=== PATIENT | female | born 1950 | race African-American/Black ===

== ENCOUNTER 2018-05-16 00:44 | Emergency (ER) | payer MEDICARE, MEDICAID ==
[~2018-05-16] VITALS: Ht 167.6 cm; Wt 90.9 kg
[~2018-05-16 00:44] MED LIST: ACET-2178 PO; ASPI-1158 PO; CARV6.2548 PO; CLON0.1T PO; LOSA50TA20 PO
[2018-05-16] MEDS ORDERED: ACETAMINOPHEN 325MG TABLET PO STA (09:59)
[2018-05-16 11:57] LABS: CLARITY URINE CLEAR (CLEAR); COLOR URINE YELLOW (YELLOW); KETONES URINE NEGATIVE (NEGATIVE); LEUKOCYTE ESTERASE URINE NEGATIVE (NEGATIVE); NITRITE URINE NEGATIVE (NEGATIVE); OCCULT BLOOD URINE NEGATIVE (NEGATIVE); PH URINE 6.5 (4.5-8.0); PROTEIN URINE NEGATIVE (NEGATIVE); SPECIFIC GRAVITY URINE 1.003 (1.005-1.030); UROBILINOGEN URINE 0.2 E.U./dL (0.2-1.0)
[2018-05-16 12:29] LABS: BASOPHILS % 0.2 % (0.0-2.0); EOSINOPHILS % 0.8 % (0.0-5.0); HEMATOCRIT. 44.3 % (36.0-48.0); HEMOGLOBIN. 14.4 g/dL (12.0-16.0); LYMPHOCYTES % 17.4 % (20.0-50.0); MEAN CORPUSCULAR HEMOGLOBIN 26.9 pg (28.0-32.0); MEAN CORPUSCULAR VOLUME 82.6 fL (81.0-99.0); MEAN PLATELET VOLUME 9.2 fl (7.4-10.4); MONOCYTES % 8.8 % (2.0-8.0); NEUTROPHILS % 72.8 % (40.0-76.0); PLATELET 132 x1000/uL (130-400); RED BLOOD CELL COUNT 5.36 mill/uL (4.2-5.4); RED CELL DISTRIBUTION WIDTH 17.1 % (11.6-14.6)
[2018-05-16 12:37] LABS: CHLORIDE 104 mEq/L (98-107)
[2018-05-16 15:01] VITALS: BP 160/92
== END 2018-05-16 15:01 | disposition home or self-care (01) ==
LOC: ER 00:44
DX: R10.9 Unspecified abdominal pain (principal); M54.5 Low back pain
CPT/HCPCS: 36415; 99283

== ENCOUNTER 2018-06-18 05:52 | Inpatient (IN) | payer MEDICARE, MEDICAID ==
[~2018-06-18] VITALS: Ht 165.1 cm; Wt 92.1 kg
[2018-06-18] MEDS ORDERED: MORPHINE SULFATE 4 MG/ML CPJ (NOT FOR IM USE) IV STA (06:25)
[2018-06-18] MEDS ORDERED: SODIUM CHLORIDE 0.9% 1,000 ML IV ONE (06:25)
[2018-06-18] MEDS ORDERED: ONDANSETRON HCL 4MG/2ML INJ IV STA (06:25)
[2018-06-18 06:52] LABS: BASOPHILS % 0.2 % (0.0-2.0); EOSINOPHILS % 0.8 % (0.0-5.0); HEMATOCRIT. 41.7 % (36.0-48.0); HEMOGLOBIN. 13.6 g/dL (12.0-16.0); LYMPHOCYTES % 9.2 % (20.0-50.0); MEAN CORPUSCULAR HEMOGLOBIN 27.1 pg (28.0-32.0); MEAN CORPUSCULAR VOLUME 83.1 fL (81.0-99.0); MONOCYTES % 6.7 % (2.0-8.0); NEUTROPHILS % 83.1 % (40.0-76.0); PLATELET 166 x1000/uL (130-400); RED BLOOD CELL COUNT 5.01 mill/uL (4.2-5.4); RED CELL DISTRIBUTION WIDTH 17.4 % (11.6-14.6)
[2018-06-18 06:59] LABS: CHLORIDE 105 mEq/L (98-107)
[2018-06-18] MEDS ORDERED: ASPIRIN 325MG EC TABLET PO ONE (10:00)
[2018-06-18 10:40] LABS: CLARITY URINE CLEAR (CLEAR); COLOR URINE YELLOW (YELLOW); KETONES URINE NEGATIVE (NEGATIVE); LEUKOCYTE ESTERASE URINE NEGATIVE (NEGATIVE); NITRITE URINE NEGATIVE (NEGATIVE); OCCULT BLOOD URINE NEGATIVE (NEGATIVE); PH URINE 7.5 (4.5-8.0); PROTEIN URINE NEGATIVE (NEGATIVE); SPECIFIC GRAVITY URINE 1.001 (1.005-1.030); UROBILINOGEN URINE 0.2 E.U./dL (0.2-1.0)
[2018-06-18] MEDS ORDERED: ONDANSETRON HCL 4MG/2ML INJ IV PRN (11:15)
[2018-06-18] MEDS ORDERED: CLONIDINE 0.1MG TABLET PO PRN (11:15)
[2018-06-18] MEDS ORDERED: ACETAMINOPHEN 325MG TABLET PO PRN (11:15)
[2018-06-18] MEDS ORDERED: DEXTROSE 50% WATER 50ML SYRINGE IV PRN (11:15)
[2018-06-18] MEDS ORDERED: IPRATROPIUM/ALBUTEROL 0.5-3(2.5)MG/3ML NEB INH PRN (11:15)
[2018-06-18 11:30] VITALS: BP 152/98
[2018-06-18] MEDS: BLOOD SUGAR DIAGNOSTIC STRIP TEST SCH ×3 (12:10→21:00)
[2018-06-18] MEDS ORDERED: LACTULOSE 20G/30ML UDC PO PRN (12:30)
[2018-06-18] MEDS ORDERED: LACTULOSE 20G/30ML UDC PO NR (12:30)
[2018-06-18] MEDS: DOCUSATE SODIUM 250MG CAPSULE PO SCH (13:21)
[2018-06-18] MEDS: CARVEDILOL 6.25 MG TABLET PO SCH ×2 (13:21→21:07)
[2018-06-18] MEDS: LOSARTAN POTASSIUM 50 MG TABLET PO SCH (13:21)
[2018-06-18] MEDS: ENOXAPARIN 40MG/0.4ML SYR SUBCUT SCH (13:22)
[2018-06-18] MEDS: INSULIN LISPRO 100 UNITS/ML SUBCUT SCH ×3 (13:24→21:00)
[2018-06-18] MEDS: FUROSEMIDE 40MG/4ML VIAL IVP SCH (17:36)
[2018-06-18 20:00] VITALS: BP 134/185
[2018-06-18] MEDS: FAMOTIDINE 20MG TABLET PO SCH (21:07)
[2018-06-19 02:26] VITALS: BP 113/66
[2018-06-19 04:00] VITALS: BP 141/85
[2018-06-19] MEDS: BLOOD SUGAR DIAGNOSTIC STRIP TEST SCH ×2 (05:53→12:03)
[2018-06-19] MEDS: INSULIN LISPRO 100 UNITS/ML SUBCUT SCH ×2 (06:00→12:19)
[2018-06-19 07:08] LABS: BASOPHILS % 0.2 % (0.0-2.0); EOSINOPHILS % 1.1 % (0.0-5.0); HEMATOCRIT. 37.4 % (36.0-48.0); HEMOGLOBIN. 12.1 g/dL (12.0-16.0); LYMPHOCYTES % 17.8 % (20.0-50.0); MEAN CORPUSCULAR VOLUME 83.5 fL (81.0-99.0); MEAN PLATELET VOLUME 8.8 fl (7.4-10.4); MONOCYTES % 9.1 % (2.0-8.0); NEUTROPHILS % 71.8 % (40.0-76.0); PLATELET 138 x1000/uL (130-400); RED BLOOD CELL COUNT 4.48 mill/uL (4.2-5.4); RED CELL DISTRIBUTION WIDTH 17.3 % (11.6-14.6)
[2018-06-19 08:10] VITALS: BP 147/88
[2018-06-19] MEDS: FUROSEMIDE 40MG/4ML VIAL IVP SCH (08:39)
[2018-06-19] MEDS: CARVEDILOL 6.25 MG TABLET PO SCH (08:39)
[2018-06-19] MEDS: ENOXAPARIN 40MG/0.4ML SYR SUBCUT SCH (08:39)
[2018-06-19] MEDS: FAMOTIDINE 20MG TABLET PO SCH (08:39)
[2018-06-19] MEDS: LOSARTAN POTASSIUM 50 MG TABLET PO SCH (08:39)
[2018-06-19] MEDS: DOCUSATE SODIUM 250MG CAPSULE PO SCH (08:39)
[2018-06-19] MEDS ORDERED: ASPIRIN 81MG TABLET PO SCH (09:00)
[2018-06-19 11:36] VITALS: BP 127/77
[2018-06-19 14:33] VITALS: BP 127/77
== END 2018-06-19 15:30 | disposition home or self-care (01) | DRG 391 ==
LOC: ER 06:31 → 8WST 10:02 → ENRESERV 10:14
PROVIDERS: ADMIT Internal Medicine; ATTEND Internal Medicine
DX: K59.00 Constipation, unspecified (principal); I50.23 Acute on chronic systolic (congestive) heart failure; I42.0 Dilated cardiomyopathy; I11.0 Hypertensive heart disease with heart failure; Z79.82 Long term (current) use of aspirin; Z79.899 Other long term (current) drug therapy; E66.01 Morbid (severe) obesity due to excess calories; E78.5 Hyperlipidemia, unspecified; I16.0 Hypertensive urgency; E11.65 Type 2 diabetes mellitus with hyperglycemia; I27.20 Pulmonary hypertension, unspecified; K21.9 Gastro-esophageal reflux disease without esophagitis; K57.90 Diverticulosis of intestine, part unspecified, without perforation or abscess without bleeding; Z82.49 Family history of ischemic heart disease and other diseases of the circulatory system; Z83.3 Family history of diabetes mellitus; Z90.710 Acquired absence of both cervix and uterus; Z79.84 Long term (current) use of oral hypoglycemic drugs; Z68.33 Body mass index [BMI] 33.0-33.9, adult
CPT/HCPCS: 36415; 71045; 74176; 80048; 80061; 82962; 83036; 83735; 84484; 93005; 93306; 93970; 96374; 99285; J1650; J1815; J1940; J2270; J2405; J7030

== ENCOUNTER 2018-09-15 18:13 | Inpatient (IN) | payer MEDICARE, MEDICAID ==
[~2018-09-15] VITALS: Ht 167.6 cm; Wt 109.8 kg
[~2018-09-15 18:13] MED LIST changes: -ACET-2178 PO
[2018-09-15] MEDS ORDERED: ENALAPRIL 2.5MG/2ML VIAL 2ML IV ONE (23:45)
[2018-09-15] MEDS ORDERED: NITROGLYCERIN OINT 1GM/INCH UDPKT TD ONE (23:45)
[2018-09-15] MEDS ORDERED: ASPIRIN 81MG TABLET PO ONE (23:45)
[2018-09-16 00:02] LABS: CHLORIDE 107 mEq/L (98-107)
[2018-09-16 00:03] LABS: BASOPHILS % 0.4 % (0.0-2.0); EOSINOPHILS % 2.5 % (0.0-5.0); HEMATOCRIT. 38.5 % (36.0-48.0); HEMOGLOBIN. 12.4 g/dL (12.0-16.0); LYMPHOCYTES % 15.8 % (20.0-50.0); MEAN CORPUSCULAR HEMOGLOBIN 26.1 pg (28.0-32.0); MEAN PLATELET VOLUME 8.4 fl (7.4-10.4); MONOCYTES % 13.1 % (2.0-8.0); NEUTROPHILS % 68.2 % (40.0-76.0); PLATELET 143 x1000/uL (130-400); RED BLOOD CELL COUNT 4.75 mill/uL (4.2-5.4); RED CELL DISTRIBUTION WIDTH 17.6 % (11.6-14.6)
[2018-09-16 01:28] LABS: *AMPHETAMINES SCREEN URINE NEGATIVE (NEGATIVE); *BARBITURATES SCREEN URINE NEGATIVE (NEGATIVE); *BENZODIAZEPINES SCREEN URINE NEGATIVE (NEGATIVE); *COCAINE SCREEN URINE NEGATIVE (NEGATIVE); METHADONE URINE SCREEN NEGATIVE (NEGATIVE); OPIATES URINE SCREEN NEGATIVE (NEGATIVE); PHENCYCLIDINE URINE SCREEN NEGATIVE (NEGATIVE)
[2018-09-16 01:29] LABS: CANNABINOID URINE SCREEN NEGATIVE (NEGATIVE)
[2018-09-16 04:00] VITALS: BP 133/96
[2018-09-16 05:14] VITALS: BP 133/96
[2018-09-16 08:00] VITALS: BP 148/93
[2018-09-16] MEDS ORDERED: DEXTROSE 50% WATER 50ML SYRINGE IV PRN (08:00)
[2018-09-16] MEDS: INSULIN LISPRO 100 UNITS/ML SUBCUT SCH ×4 (08:08→21:11)
[2018-09-16] MEDS ORDERED: FUROSEMIDE 100MG/10ML VIAL IVP SCH (09:00)
[2018-09-16] MEDS ORDERED: ENOXAPARIN 30MG/0.3ML SYR SUBCUT SCH (09:00)
[2018-09-16 09:11] LABS: BASOPHILS % 0.3 % (0.0-2.0); EOSINOPHILS % 2.3 % (0.0-5.0); HEMATOCRIT. 38.3 % (36.0-48.0); HEMOGLOBIN. 12.3 g/dL (12.0-16.0); LYMPHOCYTES % 13.9 % (20.0-50.0); MEAN CORPUSCULAR HEMOGLOBIN 25.7 pg (28.0-32.0); MEAN CORPUSCULAR VOLUME 80.3 fL (81.0-99.0); MEAN PLATELET VOLUME 8.6 fl (7.4-10.4); MONOCYTES % 12.5 % (2.0-8.0); PLATELET 152 x1000/uL (130-400); RED BLOOD CELL COUNT 4.77 mill/uL (4.2-5.4); RED CELL DISTRIBUTION WIDTH 17.5 % (11.6-14.6)
[2018-09-16 09:18] LABS: CHLORIDE 107 mEq/L (98-107)
[2018-09-16 09:28] LABS: CREATINE KINASE 111 IU/L (26-192)
[2018-09-16 12:00] VITALS: BP 118/82
[2018-09-16] MEDS: BLOOD SUGAR DIAGNOSTIC STRIP TEST SCH ×3 (12:26→21:09)
[2018-09-16] MEDS ORDERED: CLONIDINE 0.2MG TABLET PO PRN (14:45)
[2018-09-16] MEDS ORDERED: CLONIDINE 0.1MG TABLET PO PRN (14:45)
[2018-09-16 16:00] VITALS: BP 99/61
[2018-09-16 16:00] LABS: CREATINE KINASE MB FRACTION 2.3 ng/mL (0.5-3.6)
[2018-09-16] MEDS: POTASSIUM CHLORIDE 20MEQ TABLET SR PO SCH (17:37)
[2018-09-16] MEDS: FUROSEMIDE 40MG/4ML VIAL IVP SCH (17:37)
[2018-09-16 19:50] LABS: INR 1.1; PROTHROMBIN TIME 11.3 sec (9.6-11.0)
[2018-09-16 20:00] VITALS: BP 137/105
[2018-09-16] MEDS: ENOXAPARIN 100MG/ML SYR SUBCUT SCH (22:39)
[2018-09-17] VITALS: BP 140/90
[2018-09-17 04:00] VITALS: BP 136/90
[2018-09-17 06:26] LABS: CHLORIDE 107 mEq/L (98-107)
[2018-09-17 06:35] LABS: CREATINE KINASE 146 IU/L (26-192)
[2018-09-17 06:38] LABS: CREATINE KINASE MB FRACTION 3.6 ng/mL (0.5-3.6)
[2018-09-17] MEDS: INSULIN LISPRO 100 UNITS/ML SUBCUT SCH ×4 (06:48→21:00)
[2018-09-17] MEDS: BLOOD SUGAR DIAGNOSTIC STRIP TEST SCH ×4 (06:48→21:00)
[2018-09-17] MEDS: FUROSEMIDE 40MG/4ML VIAL IVP SCH ×2 (06:49→18:40)
[2018-09-17 08:00] VITALS: BP 135/81
[2018-09-17] MEDS: ENOXAPARIN 100MG/ML SYR SUBCUT SCH (08:55)
[2018-09-17] MEDS: POTASSIUM CHLORIDE 20MEQ TABLET SR PO SCH (08:55)
[2018-09-17 09:07] LABS: BASOPHILS % 0.5 % (0.0-2.0); EOSINOPHILS % 2.4 % (0.0-5.0); HEMATOCRIT. 37.4 % (36.0-48.0); HEMOGLOBIN. 12.2 g/dL (12.0-16.0); LYMPHOCYTES % 17.1 % (20.0-50.0); MEAN CORPUSCULAR HEMOGLOBIN 26.3 pg (28.0-32.0); MEAN CORPUSCULAR VOLUME 80.5 fL (81.0-99.0); MEAN PLATELET VOLUME 8.9 fl (7.4-10.4); MONOCYTES % 12.3 % (2.0-8.0); NEUTROPHILS % 67.7 % (40.0-76.0); PLATELET 158 x1000/uL (130-400); RED BLOOD CELL COUNT 4.65 mill/uL (4.2-5.4); RED CELL DISTRIBUTION WIDTH 17.6 % (11.6-14.6)
[2018-09-17] MEDS: IPRATROPIUM/ALBUTEROL 0.5-3(2.5)MG/3ML NEB HHN PRN ×2 (11:11→21:15)
[2018-09-17 12:10] VITALS: BP 115/95
[2018-09-17] MEDS: LOSARTAN POTASSIUM 50 MG TABLET PO SCH (12:34)
[2018-09-17 15:32] LABS: CREATINE KINASE MB FRACTION 2.9 ng/mL (0.5-3.6)
[2018-09-17 16:00] VITALS: BP 135/81
[2018-09-17 20:00] VITALS: BP 134/99
[2018-09-17] MEDS: CARVEDILOL 6.25 MG TABLET PO SCH (22:37)
[2018-09-17] MEDS: ENOXAPARIN 120MG/0.8ML SYR SUBCUT SCH (22:38)
[2018-09-18] VITALS: BP 117/70
[2018-09-18 04:00] VITALS: BP 123/88
[2018-09-18] MEDS: INSULIN LISPRO 100 UNITS/ML SUBCUT SCH ×3 (07:02→21:00)
[2018-09-18] MEDS: BLOOD SUGAR DIAGNOSTIC STRIP TEST SCH ×4 (07:02→21:00)
[2018-09-18] MEDS: FUROSEMIDE 40MG/4ML VIAL IVP SCH ×2 (07:02→17:12)
[2018-09-18 07:29] LABS: BASOPHILS % 0.7 % (0.0-2.0); EOSINOPHILS % 2.4 % (0.0-5.0); HEMATOCRIT. 38.3 % (36.0-48.0); HEMOGLOBIN. 12.3 g/dL (12.0-16.0); LYMPHOCYTES % 19.2 % (20.0-50.0); MEAN CORPUSCULAR HEMOGLOBIN 25.7 pg (28.0-32.0); MEAN CORPUSCULAR VOLUME 80.1 fL (81.0-99.0); MEAN PLATELET VOLUME 9.3 fl (7.4-10.4); MONOCYTES % 11.9 % (2.0-8.0); NEUTROPHILS % 65.8 % (40.0-76.0); PLATELET 152 x1000/uL (130-400); RED BLOOD CELL COUNT 4.78 mill/uL (4.2-5.4); RED CELL DISTRIBUTION WIDTH 17.3 % (11.6-14.6)
[2018-09-18 08:00] VITALS: BP 114/83
[2018-09-18] MEDS: CARVEDILOL 6.25 MG TABLET PO SCH ×2 (10:16→22:40)
[2018-09-18] MEDS: POTASSIUM CHLORIDE 20MEQ TABLET SR PO SCH (10:16)
[2018-09-18] MEDS: LOSARTAN POTASSIUM 50 MG TABLET PO SCH (10:17)
[2018-09-18] MEDS: ENOXAPARIN 120MG/0.8ML SYR SUBCUT SCH ×2 (10:26→22:41)
[2018-09-18 12:00] VITALS: BP 100/74
[2018-09-18 16:00] VITALS: BP 121/80
[2018-09-18 20:00] VITALS: BP 118/85
[2018-09-19] VITALS: BP 146/65
[2018-09-19 04:00] VITALS: BP 129/93
[2018-09-19] MEDS: BLOOD SUGAR DIAGNOSTIC STRIP TEST SCH ×4 (06:34→21:12)
[2018-09-19] MEDS: INSULIN LISPRO 100 UNITS/ML SUBCUT SCH ×4 (06:34→21:00)
[2018-09-19] MEDS: FUROSEMIDE 40MG/4ML VIAL IVP SCH ×2 (06:49→17:21)
[2018-09-19 06:50] LABS: BASOPHILS % 0.6 % (0.0-2.0); EOSINOPHILS % 2.4 % (0.0-5.0); HEMATOCRIT. 38.6 % (36.0-48.0); HEMOGLOBIN. 12.4 g/dL (12.0-16.0); LYMPHOCYTES % 20.1 % (20.0-50.0); MEAN CORPUSCULAR HEMOGLOBIN 25.8 pg (28.0-32.0); MEAN PLATELET VOLUME 9.2 fl (7.4-10.4); MONOCYTES % 13.9 % (2.0-8.0); PLATELET 151 x1000/uL (130-400); RED BLOOD CELL COUNT 4.82 mill/uL (4.2-5.4); RED CELL DISTRIBUTION WIDTH 17.6 % (11.6-14.6)
[2018-09-19 08:00] VITALS: BP 118/76
[2018-09-19] MEDS: CARVEDILOL 6.25 MG TABLET PO SCH ×2 (08:56→21:14)
[2018-09-19] MEDS: LOSARTAN POTASSIUM 50 MG TABLET PO SCH (08:56)
[2018-09-19] MEDS: POTASSIUM CHLORIDE 20MEQ TABLET SR PO SCH (08:56)
[2018-09-19] MEDS: ENOXAPARIN 120MG/0.8ML SYR SUBCUT SCH ×2 (08:57→21:15)
[2018-09-19 12:00] VITALS: BP 111/82
[2018-09-19 16:00] VITALS: BP 124/77
[2018-09-19 20:00] VITALS: BP 146/102
[2018-09-20] VITALS: BP 140/90
[2018-09-20 04:00] VITALS: BP 122/61
[2018-09-20] MEDS: INSULIN LISPRO 100 UNITS/ML SUBCUT SCH ×4 (06:14→21:00)
[2018-09-20] MEDS: BLOOD SUGAR DIAGNOSTIC STRIP TEST SCH ×4 (06:14→21:00)
[2018-09-20 06:35] LABS: BASOPHILS % 0.6 % (0.0-2.0); EOSINOPHILS % 1.8 % (0.0-5.0); HEMATOCRIT. 37.4 % (36.0-48.0); HEMOGLOBIN. 12.1 g/dL (12.0-16.0); LYMPHOCYTES % 21.3 % (20.0-50.0); MEAN CORPUSCULAR HEMOGLOBIN 25.7 pg (28.0-32.0); MEAN CORPUSCULAR VOLUME 79.8 fL (81.0-99.0); MEAN PLATELET VOLUME 9.3 fl (7.4-10.4); MONOCYTES % 12.8 % (2.0-8.0); NEUTROPHILS % 63.5 % (40.0-76.0); PLATELET 155 x1000/uL (130-400); RED BLOOD CELL COUNT 4.69 mill/uL (4.2-5.4); RED CELL DISTRIBUTION WIDTH 17.4 % (11.6-14.6)
[2018-09-20 08:00] VITALS: BP 136/95
[2018-09-20] MEDS: CARVEDILOL 6.25 MG TABLET PO SCH ×2 (08:14→22:49)
[2018-09-20] MEDS: POTASSIUM CHLORIDE 20MEQ TABLET SR PO SCH (08:14)
[2018-09-20] MEDS: FUROSEMIDE 40MG/4ML VIAL IVP SCH (08:15)
[2018-09-20] MEDS: LOSARTAN POTASSIUM 50 MG TABLET PO SCH (08:15)
[2018-09-20] MEDS: ENOXAPARIN 120MG/0.8ML SYR SUBCUT SCH ×2 (08:15→22:54)
[2018-09-20 12:00] VITALS: BP 139/75
[2018-09-20] MEDS ORDERED: METOLAZONE 2.5MG TABLET PO NR (13:30)
[2018-09-20 16:00] VITALS: BP 118/90
[2018-09-20] MEDS: FUROSEMIDE 100MG/10ML VIAL IVP SCH (16:36)
[2018-09-20 18:51] LABS: CLARITY URINE CLEAR (CLEAR); COLOR URINE YELLOW (YELLOW); KETONES URINE NEGATIVE (NEGATIVE); LEUKOCYTE ESTERASE URINE NEGATIVE (NEGATIVE); NITRITE URINE NEGATIVE (NEGATIVE); OCCULT BLOOD URINE NEGATIVE (NEGATIVE); PH URINE 7.5 (4.5-8.0); PROTEIN URINE NEGATIVE (NEGATIVE); SPECIFIC GRAVITY URINE 1.006 (1.005-1.030); UROBILINOGEN URINE 0.2 E.U./dL (0.2-1.0)
[2018-09-20 20:00] VITALS: BP 118/80
[2018-09-21] VITALS (7 sets, daily range): BP systolic 98–128; BP diastolic 58–90
[2018-09-21] MEDS: BLOOD SUGAR DIAGNOSTIC STRIP TEST SCH ×4 (06:12→21:00)
[2018-09-21] MEDS: FUROSEMIDE 100MG/10ML VIAL IVP SCH ×2 (06:23→18:05)
[2018-09-21] MEDS: INSULIN LISPRO 100 UNITS/ML SUBCUT SCH ×4 (06:23→21:29)
[2018-09-21 07:01] LABS: HEMATOCRIT. 37.8 % (36.0-48.0); HEMOGLOBIN. 12.3 g/dL (12.0-16.0); MEAN CORPUSCULAR VOLUME 79.9 fL (81.0-99.0); MEAN PLATELET VOLUME 9.2 fl (7.4-10.4); PLATELET 161 x1000/uL (130-400); RED BLOOD CELL COUNT 4.73 mill/uL (4.2-5.4); RED CELL DISTRIBUTION WIDTH 17.8 % (11.6-14.6)
[2018-09-21] MEDS: POTASSIUM CHLORIDE 20MEQ TABLET SR PO SCH (08:52)
[2018-09-21] MEDS: LOSARTAN POTASSIUM 50 MG TABLET PO SCH (08:53)
[2018-09-21] MEDS: METOLAZONE 2.5MG TABLET PO SCH (08:53)
[2018-09-21] MEDS: ENOXAPARIN 120MG/0.8ML SYR SUBCUT SCH ×2 (08:53→21:28)
[2018-09-21] MEDS: CARVEDILOL 6.25 MG TABLET PO SCH ×2 (08:53→21:00)
[2018-09-21 11:41] LABS: PLATELET ESTIMATE NORMAL
[2018-09-22 04:00] VITALS: BP 112/74
[2018-09-22 06:05] LABS: BASOPHILS % 0.2 % (0.0-2.0); EOSINOPHILS % 1.9 % (0.0-5.0); HEMATOCRIT. 42.1 % (36.0-48.0); HEMOGLOBIN. 13.5 g/dL (12.0-16.0); LYMPHOCYTES % 20.5 % (20.0-50.0); MEAN CORPUSCULAR HEMOGLOBIN 25.4 pg (28.0-32.0); MEAN CORPUSCULAR VOLUME 79.6 fL (81.0-99.0); MEAN PLATELET VOLUME 9.4 fl (7.4-10.4); MONOCYTES % 13.4 % (2.0-8.0); PLATELET 167 x1000/uL (130-400); RED CELL DISTRIBUTION WIDTH 17.8 % (11.6-14.6)
[2018-09-22] MEDS: BLOOD SUGAR DIAGNOSTIC STRIP TEST SCH ×2 (06:24→11:45)
[2018-09-22] MEDS: INSULIN LISPRO 100 UNITS/ML SUBCUT SCH ×2 (06:24→12:59)
[2018-09-22] MEDS: FUROSEMIDE 100MG/10ML VIAL IVP SCH (06:39)
[2018-09-22 08:00] VITALS: BP 112/67
[2018-09-22] MEDS: METOLAZONE 2.5MG TABLET PO SCH (09:16)
[2018-09-22] MEDS: POTASSIUM CHLORIDE 20MEQ TABLET SR PO SCH (09:16)
[2018-09-22] MEDS: LOSARTAN POTASSIUM 50 MG TABLET PO SCH (09:16)
[2018-09-22] MEDS: ENOXAPARIN 120MG/0.8ML SYR SUBCUT SCH (09:17)
[2018-09-22] MEDS: CARVEDILOL 6.25 MG TABLET PO SCH (09:17)
[2018-09-22 12:00] VITALS: BP 95/55
[2018-09-22 15:18] VITALS: BP 95/55
[2018-09-22] MEDS ORDERED: FUROSEMIDE 40MG/4ML VIAL IV SCH (17:15)
[2018-09-22] MEDS ORDERED: APIXABAN 5 MG TABLET PO SCH (21:00)
== END 2018-09-22 17:45 | disposition home health service (06) | DRG 292 ==
LOC: ER 18:13 → CANBEDREQ 09-16 02:36 → 5WST 09-16 02:47 → EDBEDREQ 09-16 03:11 → ENRESERV 09-16 04:16
PROVIDERS: ADMIT Internal Medicine; ATTEND Internal Medicine
DX: I11.0 Hypertensive heart disease with heart failure (principal); I48.1 Persistent atrial fibrillation; E46 Unspecified protein-calorie malnutrition; I50.23 Acute on chronic systolic (congestive) heart failure; I27.20 Pulmonary hypertension, unspecified; I42.0 Dilated cardiomyopathy; E11.9 Type 2 diabetes mellitus without complications; K21.9 Gastro-esophageal reflux disease without esophagitis; Z79.82 Long term (current) use of aspirin; Z79.899 Other long term (current) drug therapy; Z68.39 Body mass index [BMI] 39.0-39.9, adult
CPT/HCPCS: 36415; 71045; 80048; 80061; 80305; 82550; 82553; 82962; 83036; 83735; 83880; 84443; 84484; 85379; 93005; 93306; 93970; 97116; 97162; 97530; 99285; J1650; J1815; J1940; J7620

== ENCOUNTER 2018-10-25 18:44 | Inpatient (IN) | payer MEDICARE, MEDICAID ==
[~2018-10-25] VITALS: Ht 162.6 cm; Wt 105.8 kg
[~2018-10-25 18:44] MED LIST changes: -LOSA50TA20 PO; +LOSA50TA41 PO
[2018-10-25] MEDS ORDERED: FUROSEMIDE 40MG/4ML VIAL IV ONE (19:30)
[2018-10-25 19:52] LABS: BASOPHILS % 0.6 % (0.0-2.0); EOSINOPHILS % 0.9 % (0.0-5.0); HEMATOCRIT. 38.4 % (36.0-48.0); HEMOGLOBIN. 12.6 g/dL (12.0-16.0); LYMPHOCYTES % 14.3 % (20.0-50.0); MEAN CORPUSCULAR VOLUME 79.6 fL (81.0-99.0); MEAN PLATELET VOLUME 8.7 fl (7.4-10.4); MONOCYTES % 11.4 % (2.0-8.0); NEUTROPHILS % 72.8 % (40.0-76.0); PLATELET 133 x1000/uL (130-400); RED BLOOD CELL COUNT 4.82 mill/uL (4.2-5.4); RED CELL DISTRIBUTION WIDTH 18.7 % (11.6-14.6)
[2018-10-25 19:56] LABS: CHLORIDE 103 mEq/L (98-107)
[2018-10-26] VITALS (10 sets, daily range): BP systolic 119–156; BP diastolic 27–106
[2018-10-26] MEDS ORDERED: DOCUSATE SODIUM 100MG CAPSULE PO PRN (05:45)
[2018-10-26] MEDS ORDERED: MAGNESIUM/ALUMINUM HYDROXIDE/SIMETHICONE 30ML UDC PO PRN (05:45)
[2018-10-26] MEDS ORDERED: GUAIFENESIN 200MG/10ML SUGAR FREE UDC PO PRN (05:45)
[2018-10-26] MEDS ORDERED: IPRATROPIUM/ALBUTEROL 0.5-3(2.5)MG/3ML NEB INH PRN (05:45)
[2018-10-26] MEDS ORDERED: ONDANSETRON HCL 4MG/2ML INJ IV PRN (05:45)
[2018-10-26] MEDS ORDERED: LORAZEPAM 2MG/ML CPJ IV PRN (05:45)
[2018-10-26] MEDS ORDERED: ACETAMINOPHEN 325MG TABLET PO PRN (05:45)
[2018-10-26] MEDS ORDERED: DEXTROSE 50% WATER 50ML SYRINGE IV PRN (05:45)
[2018-10-26] MEDS ORDERED: HYDROMORPHONE HCL/PF 2MG/ML CPJ IV PRN (05:45)
[2018-10-26] MEDS ORDERED: DIPHENHYDRAMINE 50MG/ML VIAL IV PRN (05:45)
[2018-10-26] MEDS ORDERED: CLONIDINE 0.1MG TABLET PO PRN (05:45)
[2018-10-26] MEDS ORDERED: HYDROCODONE/ACETAMINOPHEN 10/325MG TABLET PO PRN (05:45)
[2018-10-26] MEDS: BLOOD SUGAR DIAGNOSTIC STRIP TEST SCH ×4 (06:07→21:33)
[2018-10-26] MEDS: SODIUM CHLORIDE 0.9% INJ 3ML FLUSH IVF SCH ×3 (06:10→21:33)
[2018-10-26] MEDS: INSULIN LISPRO 100 UNITS/ML SUBCUT SCH ×4 (06:39→21:27)
[2018-10-26] MEDS: FUROSEMIDE 40MG/4ML VIAL IVP SCH ×2 (08:33→17:58)
[2018-10-26] MEDS: ASPIRIN 81MG EC TABLET PO SCH (08:33)
[2018-10-26] MEDS: POTASSIUM CHLORIDE 20MEQ TABLET SR PO SCH (08:33)
[2018-10-26] MEDS: ENOXAPARIN 30MG/0.3ML SYR SUBCUT SCH ×2 (08:34→09:00)
[2018-10-26] MEDS: ENOXAPARIN 120MG/0.8ML SYR SUBCUT SCH ×2 (11:25→21:26)
[2018-10-26 11:26] LABS: HEMATOCRIT 38.7 % (36.0-48.0); HEMOGLOBIN 12.5 g/dL (12.0-16.0); MEAN CORPUSCULAR HEMOGLOBIN 25.7 pg (28.0-32.0); MEAN CORPUSCULAR VOLUME 79.5 fL (81.0-99.0); PLATELET 139 x1000/uL (130-400); RED BLOOD CELL COUNT 4.87 mill/uL (4.2-5.4)
[2018-10-26] MEDS: DILTIAZEM HCL 60MG TABLET PO SCH ×3 (11:26→21:25)
[2018-10-26] MEDS: LOSARTAN POTASSIUM 50 MG TABLET PO SCH (11:26)
[2018-10-26 11:34] LABS: CREATINE KINASE MB FRACTION 2.7 ng/mL (0.5-3.6)
[2018-10-26] MEDS ORDERED: DILTIAZEM HCL 60MG TABLET PO SCH (14:00)
[2018-10-26 15:15] LABS: CREATINE KINASE MB FRACTION 2.9 ng/mL (0.5-3.6)
[2018-10-26 17:20] LABS: CLARITY URINE CLEAR (CLEAR); COLOR URINE YELLOW (YELLOW); KETONES URINE NEGATIVE (NEGATIVE); LEUKOCYTE ESTERASE URINE NEGATIVE (NEGATIVE); NITRITE URINE NEGATIVE (NEGATIVE); OCCULT BLOOD URINE NEGATIVE (NEGATIVE); PH URINE 5.5 (4.5-8.0); PROTEIN URINE NEGATIVE (NEGATIVE); SPECIFIC GRAVITY URINE 1.011 (1.005-1.030)
[2018-10-27] VITALS (12 sets, daily range): BP systolic 92–146; BP diastolic 37–99
[2018-10-27] MEDS: SODIUM CHLORIDE 0.9% INJ 3ML FLUSH IVF SCH ×3 (05:53→21:47)
[2018-10-27] MEDS: DILTIAZEM HCL 60MG TABLET PO SCH ×3 (05:55→21:47)
[2018-10-27] MEDS: BLOOD SUGAR DIAGNOSTIC STRIP TEST SCH ×4 (06:56→21:47)
[2018-10-27 07:11] LABS: BASOPHILS % 0.5 % (0.0-2.0); EOSINOPHILS % 2.3 % (0.0-5.0); HEMATOCRIT. 38.4 % (36.0-48.0); HEMOGLOBIN. 12.3 g/dL (12.0-16.0); LYMPHOCYTES % 17.3 % (20.0-50.0); MEAN CORPUSCULAR HEMOGLOBIN 25.8 pg (28.0-32.0); MEAN CORPUSCULAR VOLUME 80.4 fL (81.0-99.0); MEAN PLATELET VOLUME 8.8 fl (7.4-10.4); MONOCYTES % 12.6 % (2.0-8.0); NEUTROPHILS % 67.3 % (40.0-76.0); PLATELET 131 x1000/uL (130-400); RED BLOOD CELL COUNT 4.78 mill/uL (4.2-5.4); RED CELL DISTRIBUTION WIDTH 18.5 % (11.6-14.6)
[2018-10-27] MEDS: FUROSEMIDE 40MG/4ML VIAL IVP SCH ×2 (07:15→16:11)
[2018-10-27] MEDS: INSULIN LISPRO 100 UNITS/ML SUBCUT SCH ×4 (07:20→21:00)
[2018-10-27] MEDS: LOSARTAN POTASSIUM 50 MG TABLET PO SCH (08:02)
[2018-10-27] MEDS: ASPIRIN 81MG EC TABLET PO SCH (08:02)
[2018-10-27] MEDS: ENOXAPARIN 120MG/0.8ML SYR SUBCUT SCH ×2 (08:08→21:47)
[2018-10-27] MEDS: POTASSIUM CHLORIDE 20MEQ TABLET SR PO SCH (08:25)
[2018-10-27 08:29] LABS: CHLORIDE 103 mEq/L (98-107)
[2018-10-27 08:37] LABS: LDL CHOLESTEROL 68 mg/dL (5-100)
[2018-10-27 08:39] LABS: HDL CHOLESTEROL 32 mg/dL (40-59); T4 FREE 1.05 ng/dL (0.76-1.46)
[2018-10-27 19:11] LABS: ANTI-NUCLEAR ANTIBODIES DIRECT Negative (Negative)
[2018-10-28] VITALS (13 sets, daily range): BP systolic 121–164; BP diastolic 63–101
[2018-10-28] MEDS: SODIUM CHLORIDE 0.9% INJ 3ML FLUSH IVF SCH ×3 (05:44→22:00)
[2018-10-28] MEDS: DILTIAZEM HCL 60MG TABLET PO SCH ×3 (05:51→17:09)
[2018-10-28] MEDS: HYDRALAZINE 20MG/ML VIAL IV PRN (06:21)
[2018-10-28 06:40] LABS: BASOPHILS % 0.4 % (0.0-2.0); EOSINOPHILS % 2.2 % (0.0-5.0); HEMATOCRIT. 35.8 % (36.0-48.0); HEMOGLOBIN. 11.7 g/dL (12.0-16.0); LYMPHOCYTES % 17.4 % (20.0-50.0); MEAN CORPUSCULAR VOLUME 79.7 fL (81.0-99.0); MEAN PLATELET VOLUME 8.9 fl (7.4-10.4); MONOCYTES % 14.7 % (2.0-8.0); NEUTROPHILS % 65.3 % (40.0-76.0); PLATELET 145 x1000/uL (130-400); RED BLOOD CELL COUNT 4.49 mill/uL (4.2-5.4); RED CELL DISTRIBUTION WIDTH 18.6 % (11.6-14.6)
[2018-10-28] MEDS: BLOOD SUGAR DIAGNOSTIC STRIP TEST SCH ×4 (07:00→21:00)
[2018-10-28] MEDS: INSULIN LISPRO 100 UNITS/ML SUBCUT SCH ×4 (07:20→20:30)
[2018-10-28] MEDS: ENOXAPARIN 120MG/0.8ML SYR SUBCUT SCH ×2 (08:08→20:19)
[2018-10-28] MEDS: POTASSIUM CHLORIDE 20MEQ TABLET SR PO SCH (08:08)
[2018-10-28] MEDS: FUROSEMIDE 40MG/4ML VIAL IVP SCH ×2 (08:08→16:10)
[2018-10-28] MEDS: LOSARTAN POTASSIUM 50 MG TABLET PO SCH (08:09)
[2018-10-28] MEDS: ASPIRIN 81MG EC TABLET PO SCH (08:09)
[2018-10-28 17:14] LABS: COMPLEMENT C3 124 mg/dL (82-167)
[2018-10-29] VITALS (9 sets, daily range): BP systolic 103–176; BP diastolic 42–101
[2018-10-29] MEDS: DILTIAZEM HCL 60MG TABLET PO SCH ×3 (00:46→12:18)
[2018-10-29] MEDS: FUROSEMIDE 40MG/4ML VIAL IVP SCH ×2 (00:46→08:23)
[2018-10-29] MEDS: HYDRALAZINE 20MG/ML VIAL IV PRN (03:51)
[2018-10-29] MEDS: SODIUM CHLORIDE 0.9% INJ 3ML FLUSH IVF SCH ×2 (05:49→14:00)
[2018-10-29] MEDS: INSULIN LISPRO 100 UNITS/ML SUBCUT SCH ×2 (07:09→12:18)
[2018-10-29] MEDS: BLOOD SUGAR DIAGNOSTIC STRIP TEST SCH ×2 (07:09→11:44)
[2018-10-29 07:19] LABS: HEMATOCRIT. 39.3 % (36.0-48.0); HEMOGLOBIN. 12.7 g/dL (12.0-16.0); MEAN CORPUSCULAR HEMOGLOBIN 25.7 pg (28.0-32.0); MEAN CORPUSCULAR VOLUME 79.5 fL (81.0-99.0); MEAN PLATELET VOLUME 9.1 fl (7.4-10.4); PLATELET 140 x1000/uL (130-400); RED BLOOD CELL COUNT 4.95 mill/uL (4.2-5.4); RED CELL DISTRIBUTION WIDTH 18.9 % (11.6-14.6)
[2018-10-29 07:46] LABS: CHLORIDE 101 mEq/L (98-107)
[2018-10-29] MEDS: ASPIRIN 81MG EC TABLET PO SCH (08:22)
[2018-10-29] MEDS: POTASSIUM CHLORIDE 20MEQ TABLET SR PO SCH (08:22)
[2018-10-29] MEDS: ENOXAPARIN 120MG/0.8ML SYR SUBCUT SCH (08:23)
[2018-10-29] MEDS: LOSARTAN POTASSIUM 50 MG TABLET PO SCH (08:23)
[2018-10-29] MEDS ORDERED: MAGNESIUM OXIDE 400MG TABLET PO SCH (09:45)
[2018-10-29 10:27] LABS: PLATELET ESTIMATE NORMAL
[2018-10-30] MEDS ORDERED: FUROSEMIDE 40MG TABLET PO SCH ×2 (09:00→17:00)
[2018-12-17] MEDS ORDERED: FURO-151 MT (17:54)
[2018-12-17] MEDS ORDERED: APIX5TAB MT (18:33)
[2018-12-17] MEDS ORDERED: POTA20TA82 MT (18:33)
== END 2018-10-29 14:30 | disposition home or self-care (01) | DRG 682 ==
LOC: ER 18:44 → 3WST 23:29 → ENRESERV 10-26 02:16
PROVIDERS: ADMIT Internal Medicine; ATTEND Internal Medicine
PROC: 5A09357 Assistance with Respiratory Ventilation, Less than 24 Consecutive Hours, Continuous Positive Airway Pressure (ICD-10-PCS; principal; 2018-10-25)
PROC: 5A09357 Assistance with Respiratory Ventilation, Less than 24 Consecutive Hours, Continuous Positive Airway Pressure (ICD-10-PCS; 2018-10-26)
PROC: 5A09357 Assistance with Respiratory Ventilation, Less than 24 Consecutive Hours, Continuous Positive Airway Pressure (ICD-10-PCS; 2018-10-28)
DX: N17.0 Acute kidney failure with tubular necrosis (principal); I50.23 Acute on chronic systolic (congestive) heart failure; J96.00 Acute respiratory failure, unspecified whether with hypoxia or hypercapnia; E43 Unspecified severe protein-calorie malnutrition; I13.0 Hypertensive heart and chronic kidney disease with heart failure and stage 1 through stage 4 chronic kidney disease, or unspecified chronic kidney disease; Z68.41 Body mass index [BMI] 40.0-44.9, adult; I47.2 Ventricular tachycardia; E87.3 Alkalosis; I42.0 Dilated cardiomyopathy; K21.9 Gastro-esophageal reflux disease without esophagitis; E11.22 Type 2 diabetes mellitus with diabetic chronic kidney disease; I25.10 Atherosclerotic heart disease of native coronary artery without angina pectoris; N18.9 Chronic kidney disease, unspecified; I27.20 Pulmonary hypertension, unspecified; E66.9 Obesity, unspecified; I48.91 Unspecified atrial fibrillation; E83.42 Hypomagnesemia; Z79.899 Other long term (current) drug therapy; Z79.82 Long term (current) use of aspirin; Z87.440 Personal history of urinary (tract) infections; Z79.01 Long term (current) use of anticoagulants; Z82.49 Family history of ischemic heart disease and other diseases of the circulatory system
CPT/HCPCS: 36415; 71045; 76770; 80048; 80061; 81003; 82550; 82553; 82962; 83735; 83880; 84439; 84443; 84484; 85027; 86038; 86160; 93005; 93970; 94640; 94660; 96374; 99285; J0360; J1650; J1815; J1940; J2405

== ENCOUNTER 2019-03-16 23:21 | Inpatient (IN) | payer MEDICARE, MEDICAID ==
[~2019-03-16] VITALS: Ht 160 cm; Wt 103.0 kg
[~2019-03-16 23:21] MED LIST changes: +APIX5TAB MT; -CLON0.1T PO; +FURO-151 MT; -LOSA50TA41 PO; +POTA20TA82 MT
[2019-03-17] MEDS ORDERED: ASPIRIN 81MG TABLET PO ONE
[2019-03-17] MEDS ORDERED: FUROSEMIDE 100MG/10ML VIAL IVP ONE
[2019-03-17 00:25] LABS: BASOPHILS % 0.6 % (0.0-2.0); EOSINOPHILS % 2.4 % (0.0-5.0); HEMATOCRIT. 38.2 % (36.0-48.0); HEMOGLOBIN. 12.2 g/dL (12.0-16.0); LYMPHOCYTES % 12.1 % (20.0-50.0); MEAN CORPUSCULAR HEMOGLOBIN 25.7 pg (28.0-32.0); MEAN CORPUSCULAR VOLUME 80.3 fL (81.0-99.0); MEAN PLATELET VOLUME 8.3 fl (7.4-10.4); NEUTROPHILS % 70.9 % (40.0-76.0); PLATELET 179 x1000/uL (130-400); RED BLOOD CELL COUNT 4.76 mill/uL (4.2-5.4); RED CELL DISTRIBUTION WIDTH 20.3 % (11.6-14.6)
[2019-03-17 00:27] LABS: CHLORIDE 104 mEq/L (98-107)
[2019-03-17 00:31] LABS: INR 1.1; PARTIAL THROMBOPLASTIN TIME 29.2 sec (23.4-31.0); PROTHROMBIN TIME 11.6 sec (9.6-11.0)
[2019-03-17 04:30] VITALS: BP 156/105
[2019-03-17] MEDS ORDERED: ACETAMINOPHEN 325MG TABLET PO PRN (05:45)
[2019-03-17] MEDS ORDERED: HYDROCODONE/ACETAMINOPHEN 5/325MG TABLET PO PRN (05:45)
[2019-03-17] MEDS ORDERED: ONDANSETRON HCL 4MG/2ML INJ IV PRN (05:45)
[2019-03-17] MEDS ORDERED: CLONIDINE 0.1MG TABLET PO PRN (05:45)
[2019-03-17] MEDS ORDERED: DOCUSATE SODIUM 100MG CAPSULE PO PRN (05:45)
[2019-03-17] MEDS ORDERED: GUAIFENESIN 200MG/10ML SUGAR FREE UDC PO PRN (05:45)
[2019-03-17] MEDS ORDERED: MORPHINE SULFATE 2 MG/ML CPJ (NOT FOR IM USE) IV PRN (05:45)
[2019-03-17] MEDS ORDERED: MAGNESIUM/ALUMINUM HYDROXIDE/SIMETHICONE 30ML UDC PO PRN (05:45)
[2019-03-17] MEDS ORDERED: DEXTROSE 50% WATER 50ML SYRINGE IV PRN (06:15)
[2019-03-17] MEDS: BLOOD SUGAR DIAGNOSTIC STRIP TEST SCH ×4 (06:30→21:00)
[2019-03-17] MEDS: FUROSEMIDE 40MG/4ML VIAL IV SCH ×2 (06:31→09:00)
[2019-03-17 08:00] VITALS: BP 130/60
[2019-03-17] MEDS ORDERED: CARVEDILOL 3.125 MG TABLET PO SCH (09:00)
[2019-03-17] MEDS: APIXABAN 5 MG TABLET PO SCH ×2 (10:40→17:00)
[2019-03-17] MEDS: CARVEDILOL 6.25 MG TABLET PO SCH ×2 (10:42→21:00)
[2019-03-17] MEDS: AMLODIPINE 10MG TABLET PO SCH (10:45)
[2019-03-17] MEDS: INSULIN LISPRO 100 UNITS/ML SUBCUT SCH ×4 (10:47→21:00)
[2019-03-17 12:00] VITALS: BP 150/85
[2019-03-17] MEDS: LEVOFLOXACIN 500MG PREMIX 100 ML IV SCH (14:57)
[2019-03-17 16:00] VITALS: BP 131/94
[2019-03-17 20:00] VITALS: BP 106/80
[2019-03-18] VITALS: BP 119/95
[2019-03-18 04:00] VITALS: BP 121/84
[2019-03-18 07:07] LABS: BASOPHILS % 0.5 % (0.0-2.0); EOSINOPHILS % 2.4 % (0.0-5.0); HEMATOCRIT. 37.2 % (36.0-48.0); HEMOGLOBIN. 11.8 g/dL (12.0-16.0); LYMPHOCYTES % 13.7 % (20.0-50.0); MEAN CORPUSCULAR HEMOGLOBIN 25.2 pg (28.0-32.0); MEAN CORPUSCULAR VOLUME 79.8 fL (81.0-99.0); MEAN PLATELET VOLUME 8.5 fl (7.4-10.4); MONOCYTES % 12.8 % (2.0-8.0); NEUTROPHILS % 70.6 % (40.0-76.0); PLATELET 173 x1000/uL (130-400); RED BLOOD CELL COUNT 4.66 mill/uL (4.2-5.4); RED CELL DISTRIBUTION WIDTH 20.1 % (11.6-14.6)
[2019-03-18 07:15] LABS: CHLORIDE 101 mEq/L (98-107)
[2019-03-18] MEDS: BLOOD SUGAR DIAGNOSTIC STRIP TEST SCH ×4 (07:20→21:33)
[2019-03-18 07:23] LABS: HDL CHOLESTEROL 38 mg/dL (40-59); LDL CHOLESTEROL 54 mg/dL (5-100)
[2019-03-18] MEDS: INSULIN LISPRO 100 UNITS/ML SUBCUT SCH ×5 (07:50→21:38)
[2019-03-18 08:18] VITALS: BP 115/73
[2019-03-18] MEDS: FUROSEMIDE 40MG/4ML VIAL IV SCH ×2 (10:02→17:28)
[2019-03-18] MEDS: APIXABAN 5 MG TABLET PO SCH ×2 (10:04→17:28)
[2019-03-18] MEDS: AMLODIPINE 10MG TABLET PO SCH (10:04)
[2019-03-18] MEDS: CARVEDILOL 6.25 MG TABLET PO SCH ×2 (10:05→21:00)
[2019-03-18 12:46] VITALS: BP 134/54
[2019-03-18] MEDS: LEVOFLOXACIN 500MG PREMIX 100 ML IV SCH (14:30)
[2019-03-18 16:51] VITALS: BP 96/65
[2019-03-18] MEDS ORDERED: POTA20TA82 PO (18:33)
[2019-03-18] MEDS ORDERED: ASPI-1393 PO (18:33)
[2019-03-18 20:00] VITALS: BP 109/77
[2019-03-19] VITALS (7 sets, daily range): BP systolic 110–128; BP diastolic 69–98
[2019-03-19 05:53] LABS: CHLORIDE 99 mEq/L (98-107)
[2019-03-19 06:24] LABS: BASOPHILS % 0.4 % (0.0-2.0); EOSINOPHILS % 2.1 % (0.0-5.0); HEMATOCRIT. 35.2 % (36.0-48.0); HEMOGLOBIN. 11.4 g/dL (12.0-16.0); LYMPHOCYTES % 13.1 % (20.0-50.0); MEAN CORPUSCULAR HEMOGLOBIN 25.7 pg (28.0-32.0); MEAN CORPUSCULAR VOLUME 79.1 fL (81.0-99.0); MEAN PLATELET VOLUME 8.4 fl (7.4-10.4); MONOCYTES % 12.8 % (2.0-8.0); NEUTROPHILS % 71.6 % (40.0-76.0); PLATELET 166 x1000/uL (130-400); RED BLOOD CELL COUNT 4.46 mill/uL (4.2-5.4); RED CELL DISTRIBUTION WIDTH 20.2 % (11.6-14.6)
[2019-03-19] MEDS: BLOOD SUGAR DIAGNOSTIC STRIP TEST SCH ×4 (06:35→21:25)
[2019-03-19] MEDS: INSULIN LISPRO 100 UNITS/ML SUBCUT SCH ×4 (07:50→21:00)
[2019-03-19] MEDS: APIXABAN 5 MG TABLET PO SCH ×2 (08:50→17:01)
[2019-03-19] MEDS: FUROSEMIDE 40MG/4ML VIAL IV SCH ×2 (08:50→17:01)
[2019-03-19] MEDS: CARVEDILOL 6.25 MG TABLET PO SCH ×2 (08:51→21:29)
[2019-03-19] MEDS: AMLODIPINE 10MG TABLET PO SCH (08:51)
[2019-03-19] MEDS: LEVOFLOXACIN 500MG PREMIX 100 ML IV SCH (11:59)
[2019-03-20] VITALS: BP 113/70
[2019-03-20 04:00] VITALS: BP 122/77
[2019-03-20] MEDS: BLOOD SUGAR DIAGNOSTIC STRIP TEST SCH ×4 (06:38→21:01)
[2019-03-20] MEDS: INSULIN LISPRO 100 UNITS/ML SUBCUT SCH ×4 (07:50→21:01)
[2019-03-20 08:00] VITALS: BP 118/75
[2019-03-20] MEDS: APIXABAN 5 MG TABLET PO SCH ×2 (09:35→17:20)
[2019-03-20] MEDS: FUROSEMIDE 40MG/4ML VIAL IV SCH ×2 (09:35→17:20)
[2019-03-20] MEDS: AMLODIPINE 10MG TABLET PO SCH (09:36)
[2019-03-20] MEDS: CARVEDILOL 6.25 MG TABLET PO SCH ×2 (09:36→21:01)
[2019-03-20] MEDS: LEVOFLOXACIN 500MG TABLET PO SCH (10:51)
[2019-03-20 12:00] VITALS: BP 100/63
[2019-03-20 16:00] VITALS: BP 112/73
[2019-03-20 20:39] VITALS: BP 119/74
[2019-03-21] VITALS (7 sets, daily range): BP systolic 101–115; BP diastolic 64–81
[2019-03-21] MEDS: BLOOD SUGAR DIAGNOSTIC STRIP TEST SCH ×2 (06:31→12:20)
[2019-03-21] MEDS: INSULIN LISPRO 100 UNITS/ML SUBCUT SCH ×2 (07:50→12:50)
[2019-03-21] MEDS: FUROSEMIDE 40MG/4ML VIAL IV SCH (09:16)
[2019-03-21] MEDS: APIXABAN 5 MG TABLET PO SCH (09:16)
[2019-03-21] MEDS: CARVEDILOL 6.25 MG TABLET PO SCH (09:16)
[2019-03-21] MEDS: AMLODIPINE 10MG TABLET PO SCH (09:16)
[2019-03-21] MEDS ORDERED: POTA20TA82 PO (11:45)
[2019-03-21] MEDS ORDERED: APIX5TAB MT (11:45)
[2019-03-21] MEDS ORDERED: CARV6.2548 PO (11:45)
[2019-03-21] MEDS ORDERED: FURO-151 PO (11:45)
[2019-03-21] MEDS: LEVOFLOXACIN 500MG TABLET PO SCH (11:55)
== END 2019-03-21 16:30 | disposition home health service (06) | DRG 291 ==
LOC: ER 23:21 → 6WST 03-17 02:09 → EDBEDREQTM 03-17 02:15 → EDBEDREQ 03-17 02:15 → ENRESERV 03-17 03:26
PROVIDERS: ADMIT Hospitalist; ATTEND Hospitalist
DX: I11.0 Hypertensive heart disease with heart failure (principal); J18.9 Pneumonia, unspecified organism; I48.20 Chronic atrial fibrillation, unspecified; D68.59 Other primary thrombophilia; L97.929 Non-pressure chronic ulcer of unspecified part of left lower leg with unspecified severity; Z68.41 Body mass index [BMI] 40.0-44.9, adult; K21.9 Gastro-esophageal reflux disease without esophagitis; I50.23 Acute on chronic systolic (congestive) heart failure; E66.01 Morbid (severe) obesity due to excess calories; E11.65 Type 2 diabetes mellitus with hyperglycemia; I25.5 Ischemic cardiomyopathy; E11.51 Type 2 diabetes mellitus with diabetic peripheral angiopathy without gangrene; Z82.49 Family history of ischemic heart disease and other diseases of the circulatory system; Z91.19 Patient's noncompliance with other medical treatment and regimen; Z79.01 Long term (current) use of anticoagulants; Z71.3 Dietary counseling and surveillance
CPT/HCPCS: 36415; 71045; 80061; 82550; 82962; 83880; 84484; 93005; 93306; 93970; 97162; 99285; J1815; J1940; J1956; J7040